=== PATIENT | female | born 1970 | race Hispanic/Latino ===

== ENCOUNTER 2022-11-10 21:55 | Emergency (ER) | payer OTHER ==
[~2022-11-10] VITALS: Ht 170.2 cm; Wt 154.2 kg
[2022-11-10 23:24] LABS: BASOPHILS % 0.4 % (0.0-1.0); EOSINOPHILS # (AUTO) 0.2 (0.0-0.4); EOSINOPHILS % 2.2 % (0.0-6.0); HEMATOCRIT 36.6 % (34.2-44.1); HEMOGLOBIN 11.9 g/dL (12.0-16.0); LYMPHOCYTES # (AUTO) 1.4 (1.0-3.2); LYMPHOCYTES % 20.5 % (18.0-39.1); MEAN CORPUSCULAR HEMOGLOBIN 32.8 pg (28-32); MEAN CORPUSCULAR HGB CONC 32.5 g/dL (31-35); MEAN CORPUSCULAR VOLUME 100.8 fL (81-99); MONOCYTES # (AUTO) 0.4 (0.2-0.8); MONOCYTES % 5.2 % (4.4-11.3); NEUTROPHILS # (AUTO) 4.8 (2.1-6.9); NEUTROPHILS % 71.4 % (38.7-80.0); PLATELET COUNT 270 x10e3/uL (140-360); RED BLOOD COUNT 3.63 x10e6/uL (3.6-5.1); RED CELL DISTRIBUTION WIDTH 13.6 % (11.7-14.4)
[2022-11-10 23:28] LABS: INR 0.91; PROTHROMBIN TIME 12.8 seconds (11.9-14.5)
[2022-11-10 23:29] LABS: PARTIAL THROMBOPLASTIN TIME 27.5 seconds (23.8-35.5)
[2022-11-10] MEDS ORDERED: FUROSEMIDE INJ 10 MG/ML 4 ML VIAL IV ONE (23:30)
[2022-11-10 23:38] LABS: ALANINE AMINOTRANSFERASE 11 IU/L (0-55); ALBUMIN 4.2 g/dL (3.5-5.0); ALBUMIN/GLOBULIN RATIO 1.1 (0.8-2.0); ALKALINE PHOSPHATASE 103 IU/L (40-150); ANION GAP 13.9 mmol/L (8-16); BLOOD UREA NITROGEN 13 mg/dL (7-26); BUN/CREATININE RATIO 16 (6-25); CALCIUM 8.7 mg/dL (8.4-10.2); CARBON DIOXIDE 25 mmol/L (22-29); CHLORIDE 106 mmol/L (98-107); GLUCOSE 98 mg/dL (74-118); LIPASE 20 U/L (8-78); POTASSIUM 3.9 mmol/L (3.5-5.1); SODIUM 141 mmol/L (136-145)
[2022-11-11 01:07] LABS: AMPHETAMINES SCREEN,URINE NEGATIVE (NEGATIVE); BENZODIAZEPINES SCREEN,URINE NEGATIVE (NEGATIVE); CLARITY,URINE SL CLOUDY (CLEAR); COLOR,URINE YELLOW (YELLOW); KETONES,URINE NEGATIVE (NEGATIVE); LEUKOCYTE ESTERASE ,URINE NEGATIVE (NEGATIVE); NITRITE,URINE NEGATIVE (NEGATIVE); PHENCYCLIDINE SCREEN,URINE NEGATIVE (NEGATIVE); PROTEIN,URINE DIPSTICK NEGATIVE (NEGATIVE)
[2022-11-11 01:14] LABS: AMORPHOUS SEDIMENT,URINE MODERATE (FEW); BACTERIA,URINE FEW /HPF; EPITHELIAL CELLS,URINE MANY /LPF; RBC,URINE 0-5 /HPF (0-5); WBC,URINE (MAN) 0-5 /HPF (0-5)
[2022-11-11] MEDS ORDERED: LIFESTYLECOMFO1 EACH (01:53)
== END 2022-11-11 02:24 | disposition home or self-care (01) ==
LOC: ER 22:24
DX: R60.9 Edema, unspecified (principal); Z87.442 Personal history of urinary calculi; Z85.850 Personal history of malignant neoplasm of thyroid; Z98.84 Bariatric surgery status
CPT/HCPCS: 36415; 71045; 80053; 80307; 81001; 83690; 84484; 85025; 85610; 85730; 99284; J1940